=== PATIENT | female | born 1995 | race Caucasian/White ===

== ENCOUNTER 2017-01-06 13:13 | Emergency (ER) | payer BC ==
[~2017-01-06] VITALS: Ht 162.6 cm; Wt 56.7 kg
--- OUTSIDE RECORDS SUMMARY | 2017-01-06 13:26 | External Medical Summary Rpt | CCD ---
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 Name Role Phone [facility] Unavailable Unavailable [facility], [facility] # [id number], Unavailable Unavailable [facility] # [id number] RACHEL SUKH, RACHEL SUKH Unavailable Unavailable RACHEL SUKH, RACHEL SUKH Unavailable Unavailable [facility] Unavailable Unavailable [facility] Unavailable Unavailable [facility] JUAN SLOAN, JUAN SLOAN Unavailable Unavailable JUAN RICK GAR Unavailable Unavailable [facility], Unavailable Unavailable [facility], Unavailable Unavailable [facility] Purpose Continuity of Care Document - 11-04-2009 through 2016 Problems Code Diagnosis DOS Provider Status 44811 OPEN WOUND 11-05-2011 RACHEL LUZ LIP WITHOUT MENTION COMPLICATIO N V720 EXAMINATION 10-28-2011 JUAN SLOAN OF EYES AND VISION V202 ROUTINE 06-24-2011 RACHEL [facility] OR CHILD HEALTH CHECK 2163 BENIGN 05-08-2011 CHRISTOPHER NEOPLASM III OSC SKIN OTHER&UNSPE C PARTS FACE 2662 OTHER 04-13-2011 [facility] B-COMPLEX HEALTH DEFICIENCIE [place] S V2541 SURVEILLANC 04-13-2011 [facility] E PREV HEALTH PRESCRIBED [place] CONTRACEPT PILL V2689 OTHER 04-13-2011 [facility] SPECIFIED HEALTH PROCREATIVE [place] MANAGEMENT 3671 MYOPIA 01-02-2011 MARTINEZ GAR 2165 BENIGN 12-30-2010 [facility] NEOPLASM OF [place] SKIN OF MEDICAL TRUNK ASSOC EXCEPT SCROTUM V0481 NEED 12-30-2010 [facility] PROPHYLACTI VAL[facility] C MEDICAL VACCINATION ASSOC &INOCULATIO N FLU 6829 CELLULITIS 01-21-2010 [facility] [place] TUG AND ABSCESS [facility] MEDICAL UNSPECIFIED ASSOC SITE 684 IMPETIGO 12-05-2009 [facility] Medications Na ND Rx Da Fi Fi Am Da Di Ph RX Ph St me C No te ll ll ou ys ag ar # ys at rm s nt no ma ic us Or Da si cy ia de te s n re d AM 67 05 05 0 21 7 CV 29 LE Ac PI 25 -2 -2 .0 S 10 ON ti CI 30 6- 7- 00 PH 66 AR ve LL 18 20 20 AR D IN 11 11 11 MA IESHA 0 CY SH 50 # UA 0 S MG 06 34 CA 0 PS UL E VILLA 53 11 11 0 20 10 CV 23 FI Ac LF 74 -0 -0 .0 S 85 TE ti AM 60 9- 9- 00 PH 66 ve ET 27 20 20 AR CH HO 20 10 10 MA AD XA 5 CY ZO # LE -T 06 MP 34 0 DS TA BL ET AM 00 09 09 0 30 10 CV 22 FI Ac OX 09 -2 -2 .0 S 53 TE ti IC 33 3- 3- 00 PH 53 ve IL 10 20 20 AR CH LI 90 10 10 MA AD N 5 CY 50 # 0 MG 06 34 CA 0 PS UL E MU 00 09 09 1 22 25 CV 22 FI Ac PI 09 -2 -2 .0 S 53 TE ti RO 31 3- 3- 00 PH 54 ve CI 01 20 20 AR CH N 04 10 10 MA AD 2% 2 CY # OI NT 06 ME 34 NT 0 Immunization Name Date Rout CVX Reac Dose Comm Prov Is Faci e tion ent ider Refu lity Give sed n IIV3 10-1 141 RACHEL No ARH 8-20 SUKH TUG VACC 11 VALL INE EY SPLI MEDI T LA NENA VIRU ASSO S C 0.5 ML DOSA GE IM USE IIV3 10-0 141 RACHEL No ARH 5-20 SUKH TUG VACC 10 VALL INE EY SPLI MEDI T LA NENA VIRU ASSO S C 0.5 ML DOSA GE IM USE Results Labs Lab Lab Date Result Refere Interp Status Commen Order Detail nces retati t Range on CHLAMYDIA AND GONORRHEA TESTING (04-13-2011 08:30) Chlamyd NEGATIV complet ia 012 E ed trachom 08:30 atis rRNA [Presen ce] in Unspeci fied specime n by Probe & target amplifi cation method Neisser NEGATIV complet ia 012 E ed gonorrh 08:30 oeae rRNA [Presen ce] in Unspeci fied specime n by Probe & target amplifi cation method CHLAMYDIA AND GONORRHEA TESTING (04-13-2011 08:30) COLLECT TE complet OR 012 ed 08:30 ETHNICI WHITE, complet TY 012 NON-HIS ed 08:30 PANIC KIT 10-13-11 complet EXPIRAT 012 ed ION 08:30 DATE SYMPTOM NO complet S 012 ed 08:30 REASON REVISIT complet FOR 012 /ANNUAL ed REQUEST 08:30 FAMILY PLANNIN G VISIT SPECIME URINE complet N 012 ed SOURCE 08:30 PREGNAN NO complet T 012 ed 08:30 CHART NA complet NUMBER 012 ed 08:30 Chlamyd Pending complet ia 012 ed trachom 08:30 atis rRNA [Presen ce] in Unspeci fied specime n by Probe & target amplifi cation method Neisser Pending complet ia 012 ed gonorrh 08:30 oeae rRNA [Presen ce] in Unspeci fied specime n by Probe & target amplifi cation method Procedures Procedure DOS Code Location Performer Comment FRAMES V2020 JUAN MARTINEZ GAR PURCHASES 2 1 VISN V2103 JUAN MARTINEZ GAR PLANO 2 TO+/-4.00 D SPHER 0.12-2.00 D CYL EA LENS V2784 JUAN MARTINEZ GAR POLYCARBO 2 ANDRESSA OR EQUAL ANY INDEX PER LENS FITTING 64323 JUAN MARTINEZ GAR SPECTACLE 2 S XCPT APHAKIA MONOFOCAL URNLS DIP 98206 RACHEL SUKH RACHEL SUKH 2 STICK/TAB LET RGNT NON-AUTO W/O MICRSCP IADNA 35056 AD DUONG CHLAMYDIA 2 [facility] TRACHOMAT [address] [address] IS AMPLIFIED PROBE TQ CONTRACEP S4993 AD DUONG TIVE 2 [facility] MARTINRONNIPRISCILA LANE CONTROL IADNA 90316 AD DUONG NEISSERIA 2 [facility] GONORRHOE [address] AE AMPLIFIED PROBE TQ OPHTH 95214 MARTINEZ NATHALIA MARTINEZ GAR MEDICAL 1 XM&EVAL INTERMEDI ATE ESTAB PT DETERMINA 15788 JUAN MARTINEZ GAR TION 1 REFRACTIV E STATE IIV3 90792 NADINE JOHNSON RACHEL SUKH VACCINE 1 [facility] SPLIT MEDICAL VIRUS 0.5 ASSOC ML DOSAGE IM USE CONTRACEP S4993 AD DUONG TIDHARMESH 1 [facility] [address] [address] CONTROL BLOOD 85834 AD DUONG COUNT 1 [facility] N [address] [address] CONTRACEP S4993 AD DUONG TIVE 1 [facility] [address] CONTROL IADNA 35518 AD DUONG NEISSERIA 1 [facility] GONORRHOE [place] CANELAILLE AE AMPLIFIED PROBE TQ URINE 62220 AD DUONG 1 [facility] VISUAL [address] COLOR CMPRSN METHS IADNA 12984 AD DUONG CHLAMYDIA 1 [facility] TRACHOMAT [place] CANELAILLE IS AMPLIFIED PROBE TQ IIV3 50879 ARH ALEX RACHEL SUKH VACCINE 0 [facility] SPLIT MEDICAL VIRUS 0.5 ASSOC ML DOSAGE IM USE FRAMES V2020 JUAN SLOAN PURCHASES 0 1 VISN V2103 JUAN SLOAN PLANO 0 TO+/-4.00 D SPHER 0.12-2.00 D CYL EA FITTING 31321 JUAN SLOAN SPECTACLE 0 S XCPT APHAKIA MONOFOCAL Encounters Encounter Start End Date Code Location Performer Type Date OFFICE 46224 RACHELMitali LUZ RACHEL SUKH OUTPATIEN 2 2 T VISIT 15 MINUTES PERIODIC 50990 RACHEL LUZ RACHEL SUKH PREVENTIV 2 2 E MED EST PATIENT 02-28YRS OFFICE 75939 CHRISTOPHER WHITE OUTPATIEN 2 2 III OSC III OSC T NEW 20 MINUTES PERIODIC 89849 AD DUONG PREVENTIV 2 2 [facility] HEALTH PATIENT [address] 02-28YRS OFFICE 41747 [facility] [place] ALEX RAMOS SUKH OUTPATIEN 1 1 VAL[facility] T VISIT MEDICAL 15 ASSOC MINUTES OFFICE 12689 AD DUONG OUTPATIEN 1 1 [facility] T VISIT [facility] IN[facility] 59137 AD DUONG PREVENTIV 1 1 [facility] E [facility] HEALTH MEDICINE ARI[place] TALAVERA PT AGE 12-17 YR OFFICE 19919 ARH ALEX WHITNEYE SUKH OUTPATIEN 0 0 [place] T VISIT MEDICAL 15 ASSOC MINUTES PERIODIC 62246 [facility] [place] ALEX WHITNEYE SUKH PREVENTIV 0 0 VALLEY E MED EST MEDICAL PATIENT ASSOC -17YRS OFFICE 48313 [facility] [place] ALEX WHITNEYE SUKH OUTPATIEN 0 0 [place] T VISIT MEDICAL 15 ASSOC MINUTES
--- OUTSIDE RECORDS SUMMARY | 2017-01-06 13:26 | External Medical Summary Rpt | CCD ---
Author Author , AGUS GOLDSMITH Address Unknown Phone [email or web address] Care Team Providers Care Metal Off Bearer Name Role Phone [facility] Unavailable Unavailable MEDICAL ASSOC, [facility] # [id number], Unavailable Unavailable [facility] # [id number] RACHEL SUKH, RACHEL SUKH Unavailable Unavailable RACHEL SUKH, RACHEL SUKH Unavailable Unavailable [facility] Unavailable Unavailable [facility] Unavailable Unavailable [facility] JUAN SLOAN, JUAN SLOAN Unavailable Unavailable JUAN RICK GAR Unavailable Unavailable WHITE III OSC, Unavailable Unavailable WHITE III OSC WHITE III OSC, Unavailable Unavailable WHITE III OSC Purpose Continuity of Care Document - 11-04-2009 through 2016 Problems Code Diagnosis DOS Provider Status 43791 OPEN WOUND 11-05-2011 RACHEL LUZ LIP WITHOUT MENTION COMPLICATIO N V720 EXAMINATION 10-28-2011 JUAN SLOAN OF EYES AND VISION V202 ROUTINE 06-24-2011 RACHEL [facility] OR CHILD HEALTH CHECK 2163 BENIGN 05-08-2011 CHRISTOPHER NEOPLASM III OSC SKIN OTHER&UNSPE C PARTS FACE 2662 OTHER 04-13-2011 [facility] B-COMPLEX HEALTH DEFICIENCIE [place] S V2541 SURVEILLANC 04-13-2011 [facility] E PREV HEALTH PRESCRIBED [place] CONTRACEPT PILL V2689 OTHER 04-13-2011 [facility] SPECIFIED HEALTH PROCREATIVE [place] MANAGEMENT 3671 MYOPIA 01-02-2011 MARTINEZ GAR 2165 BENIGN 12-30-2010 [facility] NEOPLASM OF [place]LEY SKIN OF MEDICAL TRUNK ASSOC EXCEPT SCROTUM V0481 NEED 12-30-2010 [facility] PROPHYLACTI [facility] C MEDICAL VACCINATION ASSOC &INOCULATIO N FLU 6829 CELLULITIS 01-21-2010 [facility] TUG AND ABSCESS [facility]ICAL UNSPECIFIED ASSOC SITE 684 IMPETIGO 12-05-2009 [facility] Medications Na ND Rx [...] OR EQUAL ANY INDEX PER LENS FITTING 08960 JUNA MARTINEZ GAR SPECTACLE 2 S XCPT APHAKIA MONOFOCAL URNLS DIP 22755 RACHEL SUKH RACHEL SUKH 2 STICK/TAB LET RGNT NON-AUTO W/O MICRSCP IADNA 95939 AD DUONG CHLAMYDIA 2 [facility] TRACHOMAT [address] [address] IS AMPLIFIED PROBE TQ CONTRACEP S4993 AD DUONG TIVE 2 [facility] MARTINRONNIPRISCILA LANE CONTROL IADNA 98021 AD DUONG NEISSERIA 2 [facility] GONORRHOE [address] AE AMPLIFIED PROBE TQ OPHTH 74161 MARTINEZ NATHALIA MARTINEZ GAR MEDICAL 1 XM&EVAL INTERMEDI ATE ESTAB PT DETERMINA 54909 JUAN MARTINEZ GAR TION 1 REFRACTIV E STATE IIV3 94566 NADINE JOHNSON RACHEL SUKH VACCINE 1 [facility] SPLIT MEDICAL VIRUS 0.5 ASSOC ML DOSAGE IM USE CONTRACEP S4993 AD DUONG TIDHARMESH 1 [facility] [place] CONTROL BLOOD 78911 AD DUONG COUNT 1 [facility] N [place] [address] CONTRACEP S4993 AD DUONG TIVE 1 [facility] [address] [address] CONTROL IADNA 73713 AD DUONG NEISSERIA 1 [facility] GONORRHOE [place] CANELAILLE AE AMPLIFIED PROBE TQ URINE 54456 AD DUONG 1 [facility] VISUAL [place] [address] COLOR CMPRSN METHS IADNA 12482 AD DUONG CHLAMYDIA 1 [facility] TRACHOMAT [place] CANELAILLE IS AMPLIFIED PROBE TQ IIV3 09214 ARH ALEX RACHEL SUKH VACCINE 0 [facility] SPLIT MEDICAL VIRUS 0.5 ASSOC ML DOSAGE IM USE FRAMES V2020 JUAN SLOAN PURCHASES 0 1 VISN V2103 JUAN SLOAN PLANO 0 TO+/-4.00 D SPHER 0.12-2.00 D CYL EA FITTING 69214 JUAN SLOAN SPECTACLE 0 S XCPT APHAKIA MONOFOCAL Encounters Encounter Start End Date Code Location Performer Type Date OFFICE 18324 RACHELMitali LUZ RACHEL SUKH OUTPATIEN 2 2 T VISIT 15 MINUTES PERIODIC 85931 RACHEL LUZ RACHEL SUKH PREVENTIV 2 2 E MED EST PATIENT 02-28YRS OFFICE 20999 CHRISTOPHER WHITE OUTPATIEN 2 2 III OSC III OSC T NEW 20 MINUTES PERIODIC 23662 AD DUONG PREVENTIV 2 2 [facility] HEALTH PATIENT [address] 02-28YRS OFFICE 31977 [facility] ALEX RAMOS SUKH OUTPATIEN 1 1 [facility] T VISIT MEDICAL 15 ASSOC MINUTES OFFICE 47541 AD DUONG OUTPATIEN 1 1 [facility] T [facility]IT [facility] 036[facility] AD DU[facility] PREVENTIV 1 1 [facility] HEALTH MEDICINE [place] TALAVERA PT AGE 12-17 YR OFFICE 34750 [facility] ALEX WHITNEYE SUKH OUTPATIEN 0 0 [place] T VISIT MEDICAL 15 ASSOC MINUTES PERIODIC 09726 [facility] ALEX WHITNEYE SUKH PREVENTIV 0 0 [facility] E MED EST MEDICAL PATIENT ASSOC -17YRS OFFICE 57058 [facility] ALEX WHITNEYE SUKH OUTPATIEN 0 0 [place] T VISIT MEDICAL 15 ASSOC MINUTES
--- OUTSIDE RECORDS SUMMARY | 2017-01-06 13:27 | External Medical Summary Rpt ---
Author Author AGUS CNS Response, [employer] Organization [employer] Address Unknown Phone Unavailable Results CHLAMYDIA AND GONORRHEA TESTING Observa Value Referen Units Interpr Notes Date tion ce etation Range COLLECT TE No No No No Apr 13 OR informa informa informa informa 2012 tion in tion in tion in tion in 8:30 AM source source source source data data data data ETHNICI WHITE, No No No No Apr 13 TY NON-HIS informa informa informa informa 2012 PANIC tion in tion in tion in tion in 8:30 AM source source source source data data data data KIT 7-31-12 No No No No Apr 13 EXPIRAT informa informa informa informa 2012 ION tion in tion in tion in tion in 8:30 AM DATE source source source source data data data data SYMPTOM NO No No No No Apr 13 S informa informa informa informa 2012 tion in tion in tion in tion in 8:30 AM source source source source data data data data REASON REVISIT No No No No Apr 13 FOR /ANNUAL informa informa informa informa 2012 REQUEST FAMILY tion in tion in tion in tion in 8:30 AM source source source source PLANNIN data data data data G VISIT SPECIME URINE No No No No Apr 13 N informa informa informa informa 2012 SOURCE tion in tion in tion in tion in 8:30 AM source source source source data data data data PREGNAN NO No No No No Apr 13 T informa informa informa informa 2012 tion in tion in tion in tion in 8:30 AM source source source source data data data data CHART NA No No No No Apr 13 NUMBER informa informa informa informa 2012 tion in tion in tion in tion in 8:30 AM source source source source data data data data Chlamyd NEGATIV No No No NEGATIV Apr 13 ia E informa informa informa E 2012 trachom tion in tion in tion in RESULT= 8:30 AM atis source source source WITHIN rRNA data data data NORMAL [Presen ce] in LIMITSP Unspeci OSITIVE fied specime RESULT= n by Probe & ABNORMA target LEQUIVO [place] NENA amplifi RESULT= cation method INDETER MINATEU NSATISF ACTORY RESULT= INVALID Neisser NEGATIV No No No NEGATIV Apr 13 ia E informa informa informa E 2012 gonorrh tion in tion in tion in RESULT= 8:30 AM oeae source source source WITHIN rRNA data data data NORMAL [Presen ce] in LIMITSP Unspeci OSITIVE fied specime RESULT= n by Probe & ABNORMA target LEQUIVO [place] NENA amplifi RESULT= cation method INDETER MINATEU NSATISF ACTORY RESULT= INVALID EFFECTI VE NOVEMBE R 2009: THE APTIMA COMBO 2 NUCLEIC ACIDAMP LIFICAT ION ASSAY IS NOT INTENDE D FOR THE EVALUAT ION OFSUSPE CTED SEXUAL ABUSE OR FOR OTHER MEDICO- LEGAL INDICAT IONS.FA LSE POSITIV E RESULTS ARE POSSIBL E.\.br\ This report contain s patient informa tion that must be protect ed in accorda nce with the Health Insuran ce Portabi lity and Account ability Act. CHLAMYDIA AND GONORRHEA TESTING Observa Value Referen Units Interpr Notes Date tion ce etation Range COLLECT TE No No No No Apr 13 OR informa informa informa informa 2012 tion in tion in tion in tion in 8:30 AM source source source source data data data data ETHNICI WHITE, No No No No Apr 13 TY NON-HIS informa informa informa informa 2011 PANIC tion in tion in tion in tion in 8:30 AM source source source source data data data data KIT 7-31-12 No No No No Apr 13 EXPIRAT informa informa informa informa 2012 ION tion in tion in tion in tion in 8:30 AM DATE source source source source data data data data SYMPTOM NO No No No No Apr 13 S informa informa informa informa 2012 tion in tion in tion in tion in 8:30 AM source source source source data data data data REASON REVISIT No No No No Apr 13 FOR /ANNUAL informa informa informa informa 2012 REQUEST FAMILY tion in tion in tion in tion in 8:30 AM source source source source PLANNIN data data data data G VISIT SPECIME URINE No No No No Apr 13 N informa informa informa informa 2012 SOURCE tion in tion in tion in tion in 8:30 AM source source source source data data data data PREGNAN NO No No No No Apr 13 T informa informa informa informa 2012 tion in tion in tion in tion in 8:30 AM source source source source data data data data CHART NA No No No No Apr 13 NUMBER informa informa informa informa 2012 tion in tion in tion in tion in 8:30 AM source source source source data data data data Chlamyd Pending No No No No Apr 13 ia informa informa informa informa 2012 trachom tion in tion in tion in tion in 8:30 AM atis source source source source rRNA data data data data [Presen ce] in Unspeci fied specime n by Probe & target amplifi cation method Neisser Pending No No No \.br\Apr 13 ia informa informa informa is 2012 gonorrh tion in tion in tion in report 8:30 AM oeae source source source contain rRNA data data data s [Presen patient ce] in Unspeci informa fied tion specime that n by must be Probe & target protect ed in amplifi accorda cation nce method with the Health Insuran ce Portabi lity and Account ability Act.
--- OUTSIDE RECORDS SUMMARY | 2017-01-06 13:27 | External Medical Summary Rpt | CCD ---
Author Author , AGUS GOLDSMITH Address Unknown Phone [email or web address] Care Team Providers Care Temperature Regulator Pyrometer Name Role Phone [facility] Unavailable Unavailable MEDICAL ASS[facility], [facility] # [id number], Unavailable Unavailable [facility] # [id number] RACHEL SUKH, RACHEL SUKH Unavailable Unavailable RACHEL LUZ, RACHEL SUKH Unavailable Unavailable [facility] Unavailable Unavailable [facility] Unavailable Unavailable [facility] JUAN SLOAN, JUAN GAR Unavailable Unavailable JUAN SLOAN, JUAN GAR Unavailable Unavailable WHITE III [facility], Unavailable Unavailable [facility] III [facility] WHITE III OSC, Unavailable Unavailable WHITE III OSC Purpose Continuity of Care Document - 11-04-2009 through 2016 Problems Code Diagnosis DOS Provider Status 45268 OPEN WOUND 11-05-2011 RACHEL [facility] LIP WITHOUT MENTION COMPLICATIO N V720 EXAMINATION 10-28-2011 JUAN SLOAN OF EYES AND VISION V202 ROUTINE 06-24-2011 [facility] INFANT OR CHILD HEALTH CHECK 2163 BENIGN 05-08-2011 CHRISTOPHER NEOPLASM III OSC SKIN OTHER&UNSPE C PARTS FACE 2662 OTHER 04-13-2011 [facility] B-COMPLEX HEALTH DEFICIENCIE [place] S V2541 SURVEILLANC 04-13-2011 [facility] E PREV HEALTH PRESCRIBED [place] CONTRACEPT PILL V2689 OTHER 04-13-2011 [facility] SPECIFIED HEALTH PROCREATIVE [place] MANAGEMENT 3671 MYOPIA 01-02-2011 MARTINEZ GAR 2165 BENIGN 12-30-2010 [facility] NEOPLASM OF [place] SKIN OF MEDICAL TRUNK ASSOC EXCEPT SCROTUM V0481 NEED 12-30-2010 [facility] PROPHYLACTI [facility] C MEDICAL VACCINATION ASSOC &INOCULATIO N FLU 6829 CELLULITIS 01-21-2010 [facility] TUG AND ABSCESS [facility] MEDICAL UNSPECIFIED ASSOC SITE 684 IMPETIGO 12-05-2009 [facility] MEDICAL [facility]OC Medications Na ND Rx Da [...] C 0.5 ML DOSA GE IM USE Procedures Procedure DOS Code Location Performer Comment FITTING 16916 JUAN SLOAN MARTINEZ GAR SPECTACLE 2 S XCPT APHAKIA MONOFOCAL 1 VISN V2103 JUAN SLOAN MARTINEZ GAR PLANO 2 TO+/-4.00 D SPHER 0.12-2.00 D CYL EA LENS V2784 JUAN SLOAN MARTINEZ GAR POLYCARBO 2 ANDRESSA OR EQUAL ANY INDEX PER LENS FRAMES V2020 JUAN MARTINEZ GAR PURCHASES 2 URNLS DIP 63344 RACHEL SUKH RACHEL SUKH 2 STICK/TAB LET RGNT NON-AUTO W/O MICRSCP CONTRACEP S4993 AD DUONG TIVE 2 [facility] [place] CONTROL IADNA 06036 AD DUONG CHLAMYDIA 2 [facility] TRACHOMAT [place] IS AMPLIFIED PROBE TQ IADNA 54827 AD DUNOG NEISSERIA 2 [facility] GONORRHOE [place] AE AMPLIFIED PROBE TQ OPHTH 30327 JUAN SLOAN MEDICAL 1 XM&EVAL INTERMEDI ATE ESTAB PT DETERMINA 20415 JUAN SLOAN TION 1 REFRACTIV E STATE IIV3 60110 ARH TUG RACHEL SUKH VACCINE 1 [facility] SPLIT MEDICAL VIRUS 0.5 ASSOC ML DOSAGE IM USE CONTRACEP S4993 AD DUONG TIVE 1 [facility] [place] CONTROL URINE 19573 AD DUONG 1 [facility] VISUAL [place] COLOR CMPRSN METHS BLOOD 32366 AD DUONG COUNT 1 [facility]ALTH N [place] IADNA 35316 AD DUONG CHLAMYDIA 1 [facility] TRACHOMAT [place] IS AMPLIFIED PROBE TQ CONTRACEP S4993 AD DUONG TIVE 1 [facility] [place] CONTROL IADNA 34381 AD DUONG NEISSERIA 1 [facility] GONORRHOE [place] AE AMPLIFIED PROBE TQ IIV3 08437 ARH TUG RACHEL SUKH VACCINE 0 [facility] S[facility]IT MEDICAL VIRUS 0.5 ASSOC ML DOSAGE IM USE FITTING 81732 JUAN SLOAN SPECTACLE 0 S XCPT APHAKIA MONOFOCAL FRAMES V2020 JUAN MARTINEZ GAR PURCHASES 0 1 VISN V2103 MARTINEZ NATHALIA SLOAN PLANO 0 TO+/-4.00 D SPHER 0.12-2.00 D CYL EA Encounters Encounter Start End Date Code Location Performer Type Date OFFICE 97900 RACHEL SUKH RACHEL SUKH OUTPATIEN 2 2 T VISIT 15 MINUTES PERIODIC 45911 RACHEL LUZ RACHEL SUKH PREVENTIV 2 2 E MED EST PATIENT 12-17YRS OFFICE 82233 CHRISTOPHER WHITE OUTPATIEN 2 2 III OSC III OSC T NEW 20 MINUTES PERIODIC 82027 AD DUONG PREVENTIV 2 2 [facility] E MED EST HEALTH HEALTH PATIENT [facility] S OFF[facility] 70454 ARH ALEX ARMOS CHA OUTPATIEN 1 1 [facility] T VISIT MEDICAL 15 ASSOC MINUTES OFFICE 79541 AD DUONG OUTPATIEN 1 1 [facility] T VISIT [facility] MINUTES INITIAL 01599 AD DUONG PREVENTIV 1 1 [facility] E HEALTH HEALTH MEDICINE [facility] PT AGE 12-17 YR OFFICE 54483 [facility] ALEX RAMOS SUKH OUTPATIEN 0 0 [facility] T VISIT MEDICAL 15 ASSOC MINUTES PERIODIC 22191 [facility] ALEX RAMOS SUKH PREVENTIV 0 0 [facility] E MED EST MEDICAL PATIENT ASSOC -17S OFFICE 29996 [facility] ALEX RAMOS SUKH OUTPATIEN 0 0 [facility] T VISIT MEDICAL 15 ASSOC MINUTES
--- OUTSIDE RECORDS SUMMARY | 2017-01-06 13:27 | External Medical Summary Rpt ---
Author Author [employer] Copper[employer], [employer] Organization [employer] Address Unknown Phone Unavailable [...]
--- OUTSIDE RECORDS SUMMARY | 2017-01-06 13:27 | External Medical Summary Rpt | CCD ---
Author Author , AGUS GOLDSMITH Address Unknown Phone [email or web address] Immunization Name Date Rout CVX Reac Dose Comm Prov Is Faci e tion ent ider Refu lity Give sed n Tdap 01-2 Intr 115 0.50 Hist MONK No H149 , 3-20 amus mL oric Adso 17 cula al APRI rbed r Info L rmat ion - Sour ce Unsp ecif ied TST- -2 96 999 Hist [place] No [place] PPD 3-20 oric intr 17 al ader Info mal rmat ion - Sour ce Unsp ecif ied
--- OUTSIDE RECORDS SUMMARY | 2017-01-06 13:27 | External Medical Summary Rpt | CCD ---
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 Role Phone [facility] Unavailable [facility]available [facility], [facility] # [id number], Unavailable Unavailable [facility] # [id number] RACHEL SUKH, RACHEL SUKH Unavailable Unavailable RACHEL LUZ, RACHEL SUKH Unavailable Unavailable [facility] Unavailable Unavailable [facility] Unavailable Unavailable [facility] JUAN SLOAN, JUAN GAR Unavailable Unavailable JUAN SLOAN, JUAN GAR Unavailable Unavailable [facility], Unavailable Unavailable [facility], Unavailable Unavailable [facility] Purpose Continuity of Care Document - 11-04-2009 through 2016 Problems Code Diagnosis DOS Provider Status 98175 OPEN WOUND 11-05-2011 RACHEL [facility] LIP WITHOUT MENTION COMPLICATIO N V720 EXAMINATION 10-28-2011 JUAN SLOAN OF EYES AND VISION V202 ROUTINE 06-24-2011 [facility] INFANT OR CHILD HEALTH CHECK 2163 BENIGN 05-08-2011 CHRISTOPHER NEOPLASM III OSC SKIN OTHER&UNSPE C PARTS FACE 2662 OTHER 04-13-2011 [facility] B-COMPLEX HEALTH DEFICIENCIE [place] S V2541 SURVEILLANC 04-13-2011 [facility] E PREV HEALTH PRESCRIBED [place] CONTRACEPT PILL V2689 OTHER 04-13-2011 [facility] SPECIFIED HEALTH PROCREATIVE [place] MANAGEMENT 3671 MYOPIA 01-02-2011 MARTINEZ GAR 2165 BENIGN 12-30-[address] [facility] NEOPLASM OF [place] SK[facility] OF MEDICAL TRUNK ASSOC EXCEPT SCROTUM V0481 NEED 12-30-[address] [facility] PROPHYLACTI [facility] C [facility]ICAL VACCINATION ASSOC &INOCULATIO N FLU 6829 CELLULITIS 01-21-2010 [facility] TUG AND ABSCESS [place] OF [facility]ICAL UNSPECIFIED ASSOC SITE 684 IMPETIGO 12-05-2009 [facility] Medications Na ND Rx [...] Procedure DOS Code Location Performer Comment FITTING 31046 JUAN SLOAN MARTINEZ GAR SPECTACLE 2 S XCPT APHAKIA MONOFOCAL 1 VISN V2103 JUAN SLOAN MARTINEZ GAR PLANO 2 TO+/-4.00 D SPHER 0.12-2.00 D CYL EA LENS V2784 JUAN SLOAN MARTINEZ GAR POLYCARBO 2 ANDRESSA OR EQUAL ANY INDEX PER LENS FRAMES V2020 JUAN MARTINEZ GAR PURCHASES 2 URNLS DIP 46806 RACHEL SUKH RACHEL SUKH 2 STICK/TAB LET RGNT NON-AUTO W/O MICRSCP CONTRACEP S4993 AD DUONG TIVE 2 [facility] [place] CONTROL IADNA 20034 AD DUONG CHLAMYDIA 2 [facility] TRACHOMAT [place] IS AMPLIFIED PROBE TQ IADNA 91702 AD DUONG NEISSERIA 2 [facility] GONORRHOE [place] AE AMPLIFIED PROBE TQ OPHTH 08199 JUAN SLOAN MEDICAL 1 XM&EVAL INTERMEDI ATE ESTAB PT DETERMINA 32418 JUAN SLOAN TION 1 REFRACTIV E STATE IIV3 90035 ARH TUG RACHEL SUKH VACCINE 1 [facility] SPL[facility] MEDICAL VIRUS 0.5 ASSOC ML DOSAGE IM USE CONTRACEP S4993 AD DUONG TIVE 1 [facility] [place] CONTROL URINE 89954 AD DUONG 1 [facility] VISUAL [place] COLOR CMPRSN METHS BLOOD 51303 AD DUONG COUNT 1 [facility]OGLO[facility]ALTH HEALTH N [place] IADNA 71292 AD DUONG CHLAMYDIA 1 [facility] TRACHOMAT [place] IS AMPLIFIED PROBE TQ CONTRACEP S4993 AD DUONG TIVE 1 [facility] [place] CONTROL IADNA 15248 AD DUONG NEISSERIA 1 [facility] GONORRHOE [place] AE AMPLIFIED PROBE TQ IIV3 84714 ARH TUG RACHEL SUKH VACCINE 0 [facility] SPLIT MEDICAL VIRUS 0.5 ASSOC ML DOSAGE IM USE FITTING 13760 JUAN SLOAN SPECTACLE 0 S XCPT APHAKIA MONOFOCAL FRAMES V2020 JUAN MARTINEZ GAR PURCHASES 0 1 VISN V2103 MARTINEZ NATHALIA SLOAN PLANO 0 TO+/-4.00 D SPHER 0.12-2.00 D CYL EA Encounters Encounter Start End Date Code Location Performer Type Date OFFICE 77238 RACHEL SUKH RACHEL SUKH OUTPATIEN 2 2 T VISIT 15 MINUTES PERIODIC 97835 RACHEL LUZ RACHEL SUKH PREVENTIV 2 2 E MED EST PATIENT 12-17YRS OFFICE 81063 CHRISTOPHER WHITE OUTPATIEN 2 2 III OSC III OSC T NEW 20 MINUTES PERIODIC 95617 AD DUONG PREVENTIV 2 2 [facility] E MED EST HEALTH HEALTH PATIENT [facility] 40504 [facility] ALEX RAMOS CHA OUTPATIEN 1 1 [facility] T VISIT MEDICAL 15 ASSOC MINUTES OFFICE 52250 AD DUONG OUTPATIEN 1 1 [facility] T VISIT [facility] 15 [facility] MINUTES INITIAL 67700 AD DUONG PREVENTIV 1 1 [facility] E HEALTH HEALTH MEDICINE [facility] PT AGE 12-17 YR OFFICE 10166 [facility] ALEX RAMOS SUKH OUTPATIEN 0 0 [facility] T VISIT MEDICAL 15 ASSOC MINUTES PERIODIC 72998 [facility] ALEX RAMOS SUKH PREVENTIV 0 0 [facility] E MED EST MEDICAL PATIENT ASSOC -17S OFFICE 78904 [facility] ALEX RAMOS SUKH OUTPATIEN 0 0 [facility] T VISIT MEDICAL 15 ASSOC MINUTES
--- OUTSIDE RECORDS SUMMARY | 2017-01-06 13:27 | External Medical Summary Rpt | CCD ---
Author Author , AGUS GOLDSMITH Address Unknown Phone [email or web address] Immunization Name Date Rout CVX Reac Dose Comm Prov Is Faci e tion ent ider Refu lity Give sed n Tdap 01-2 Intr 115 0.50 Hist MONK No H149 , 3-20 amus mL oric Adso 17 cula al APRI rbed r Info L rmat ion - Sour ce Unsp ecif ied TST- -2 96 999 Hist MI No MI PPD 3-20 oric intr 17 al ader Info mal rmat ion - Sour ce Unsp ecif ied
[2017-01-06] MEDS ORDERED: SRONYX 0.02 MG-1 TAB PO (13:48)
--- NOTE | 2017-01-06 14:16 | Emergency Room Report ---
History of Present Illness Time Seen by MD Arzola Presenting Problem in Triage Pt arrived:Walked Presenting Problem:PT STATES SHE HAS HAD NUMBNESS IN HER RT SIDE FOR THE PAST 5 DAYS. SHE IS UNABLE TO GET COMFORTABLE TO SLEEP. STATES TODAY SHE HAS SOME NUMBNESS IN HER LIP, AND DISCOMFORT IN HER RT HIP AND CALF. DENIES VISION AND HEARING CHANGES/LOSS. 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 N Clinical Suspician of Infection? N Mental Status: 1 - Regular (Normal Baseline) Sepsis Risk:Low Sepsis Risk Have you (or family members/close friends) recently traveled outside the [place]? N If Yes, where/when: Have you had exposure to infectious disease within the past month? N TB? Other? Specify: Patient states she had right flank numbness when she went to bed. She couldn't get comfortable. She then noted that her entire right foot felt numb over the past few days. She also has had some RUE numbness as well as R lip numbness. She denies any new headache. No joint pain. No symptoms now. No unusual rashes. No fever. Pt ambulatory. 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 No diplopia or syncope. ALLERGIES Coded Allergies: No Known Allergies (01/06/17) Home Medications Reported Medications LEVONORGESTREL-ETHIN ESTRADIOL (Sronyx 0.10-0.02 MG Tablet) 1 TAB PO DAILY History Medical History General CAD? No Angina: No LA: No Hypertension? No Hyperlipidemia? No CHF? No DVT? No PE? No COPD? No Asthma? No Anemia? No GERD? No Gastric ulcers? No GI Bleed? No Hernia? No Thyroid Problems? No Hypothyroidism? No CVA? No Seizures? No Diabetes? No Renal Insuffiency? No End Stage Renal Disease? No UTI? No Stones? No BPH? No GB Disease: No Nephritic Syndrome? No Asplenia? No Hepatitis? No Sickle Cell Disease? No Arthritis? No Migraines? No Cataracts? No Glaucoma? No MRSA? No HIV? No TB? No Anxiety? No Depression? No Cancer? No Site: N More? 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 Social History Smoking Hx Smoker: Never Smoker Tobacco: No Alcohol Alcohol: No Review of Systems All Other Systems Reviewed and Negative Gastrointestinal denies see HPI Physical Exam Vital Signs Vital Signs Date Time Temp Pulse Resp B/P Pulse O2 O2 Flow FiO2 Ox Delivery Rate 01/06 1359 99.0 71 18 146/81 100 01/06 1333 99.0 71 18 146/81 100 General Appearance normal appearance, WD/WN, no apparent distress Eye Exam - bilateral eye normal exam, bilateral eye PERRL, bilateral eye EOMI Neck normal inspection, non-tender, supple, full range of motion Respiratory Status Yes: trachea midline, chest symmetrical, non tender chest. No: respiratory distress, tender on palpation, use of accessory muscles, pain on inspiration, pain on expiration, productive cough, non productive cough. Lung Sounds bilateral: normal breath sounds, lungs clear. 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 Neurologically normal on exam. Glascow Coma Scale Glascow Coma Scale Response Value EYE response: 4 Spontaneously 4 MOTOR response: 6 OBEYS 6 VERBAL response: 5 Oriented & Converses 5 Total 15 Reflexes Reflexes normal Yes DTR 3+ ankle (R), 3+ ankle (L) Skin intact, normal color, warm/dry (good turgor) Medical Decision Making LABS/Meds/Orders Pt receiving controlled substance in ED? No Progress ED Progress Notes Date 01/06/17 Time 1413 Comment BP 116/74; no indication for CT at this time but we reviewed possible reasons for return to ED as well as need for f/u with PCP of choice. Departure Departure Time of Disposition 1413 Disposition DC Home or Self Care(routine) Clinical Impression Primary Impression: Neurologic complaint, functional Condition STABLE Patient Instructions Regional Anesthesia Additional Instructions See family doctor of choice on list provided for recheck. Watch for fever or rash. Discharge Counseling Counseled pt/family regarding diagnosis, home care, follow up needs ED Critical Care Critical Care No at 1411
--- NOTE | 2017-01-06 14:16 | Emergency Room Report ---
History of Present Illness Time Seen by MD Arzola Presenting Problem in Triage Pt arrived:Walked Presenting Problem:PT STATES SHE HAS HAD NUMBNESS IN HER RT SIDE FOR THE PAST 5 DAYS. SHE IS UNABLE TO GET COMFORTABLE TO SLEEP. STATES TODAY SHE HAS SOME NUMBNESS IN HER LIP, AND DISCOMFORT IN HER RT HIP AND CALF. DENIES VISION AND HEARING CHANGES/LOSS. 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 N Clinical Suspician of Infection? N Mental Status: 1 - Regular (Normal Baseline) Sepsis Risk:Low Sepsis Risk Have you (or family members/close friends) recently traveled outside the [place]? N If Yes, where/when: Have you had exposure to infectious disease within the past month? N TB? Other? Specify: Patient states she had right flank numbness when she went to bed. She couldn't get comfortable. She then noted that her entire right foot felt numb over the past few days. She also has had some RUE numbness as well as R lip numbness. She denies any new headache. No joint pain. No symptoms now. No unusual rashes. No fever. Pt ambulatory. 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 No diplopia or syncope. ALLERGIES Coded Allergies: No Known Allergies (01/06/17) Home Medications Reported Medications LEVONORGESTREL-ETHIN ESTRADIOL (Sronyx 0.10-0.02 MG Tablet) 1 TAB PO DAILY History Medical History General CAD? No Angina: No AL: No Hypertension? No Hyperlipidemia? No CHF? No DVT? No PE? No COPD? No Asthma? No Anemia? No GERD? No Gastric ulcers? No GI Bleed? No Hernia? No Thyroid Problems? No Hypothyroidism? No CVA? No Seizures? No Diabetes? No Renal Insuffiency? No End Stage Renal Disease? No UTI? No Stones? No BPH? No GB Disease: No Nephritic Syndrome? No Asplenia? No Hepatitis? No Sickle Cell Disease? No Arthritis? No Migraines? No Cataracts? No Glaucoma? No MRSA? No HIV? No TB? No Anxiety? No Depression? No Cancer? No Site: N More? 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 Social History Smoking Hx Smoker: Never Smoker Tobacco: No Alcohol Alcohol: No Review of Systems All Other Systems Reviewed and Negative Gastrointestinal denies see HPI Physical Exam Vital Signs Vital Signs Date Time Temp Pulse Resp B/P Pulse O2 O2 Flow FiO2 Ox Delivery Rate 01/06 1359 99.0 71 18 146/81 100 01/06 1333 99.0 71 18 146/81 100 General Appearance normal appearance, WD/WN, no apparent distress Eye Exam - bilateral eye normal exam, bilateral eye PERRL, bilateral eye EOMI Neck normal inspection, non-tender, supple, full range of motion Respiratory Status Yes: trachea midline, chest symmetrical, non tender chest. No: respiratory distress, tender on palpation, use of accessory muscles, pain on inspiration, pain on expiration, productive cough, non productive cough. Lung Sounds bilateral: normal breath sounds, lungs clear. 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 Neurologically normal on exam. Glascow Coma Scale Glascow Coma Scale Response Value EYE response: 4 Spontaneously 4 MOTOR response: 6 OBEYS 6 VERBAL response: 5 Oriented & Converses 5 Total 15 Reflexes Reflexes normal Yes DTR 3+ ankle (R), 3+ ankle (L) Skin intact, normal color, warm/dry (good turgor) Medical Decision Making LABS/Meds/Orders Pt receiving controlled substance in ED? No Progress ED Progress Notes Date 01/06/17 Time 1413 Comment BP 116/74; no indication for CT at this time but we reviewed possible reasons for return to ED as well as need for f/u with PCP of choice. Departure Departure Time of Disposition 1413 Disposition DC Home or Self Care(routine) Clinical Impression Primary Impression: Neurologic complaint, functional Condition STABLE Patient Instructions Regional Anesthesia Additional Instructions See family doctor of choice on list provided for recheck. Watch for fever or rash. Discharge Counseling Counseled pt/family regarding diagnosis, home care, follow up needs ED Critical Care Critical Care No at 1410
[2017-01-06 14:18] VITALS: BP 116/74
== END 2017-01-06 14:19 | disposition home or self-care (01) ==
LOC: UTC 13:13 → ER 13:23
DX: R20.2 Paresthesia of skin (principal)